=== PATIENT | male | born 1955 | race Caucasian/White ===

== ENCOUNTER → 2017-10-20 | Outpatient (CLI) | payer OTHER ==
[~2017-10-20] MED LIST: BENEMID500 MG PO; FISH OIL 1,0001 EAC7 PO; MULTI-DAY PLUS1 EAC1 PO; NIASPAN,SLO-N1000 MG PO; POLY-VITAMIN1 EACH PO; POTASSIUM-9999 MG PO; ZESTORETIC 10-1 EAC1 PO
== END | disposition home or self-care (01) ==
LOC: CDC 12:24
DX: Z01.810 Encounter for preprocedural cardiovascular examination (principal); M67.431 Ganglion, right wrist; M25.531 Pain in right wrist; R94.31 Abnormal electrocardiogram [ECG] [EKG]
CPT/HCPCS: 93000

== ENCOUNTER 2017-10-23 09:13 | Day surgery (SDC) | payer OTHER ==
[~2017-10-23] VITALS: Ht 182.9 cm; Wt 95.2 kg
[2017-10-23 09:32] VITALS: BP 137/81
[2017-10-23 12:33] VITALS: BP 121/76
[2017-10-23 13:05] VITALS: BP 126/78
== END 2017-10-23 13:17 | disposition home or self-care (01) ==
LOC: SDC
PROC: 0LB50ZZ Excision of Right Lower Arm and Wrist Tendon, Open Approach (ICD-10-PCS; principal; 2017-10-23)
DX: M67.431 Ganglion, right wrist (principal); I10 Essential (primary) hypertension; M10.9 Gout, unspecified; Z82.49 Family history of ischemic heart disease and other diseases of the circulatory system
CPT/HCPCS: 88304; J1100; J1885; J2250; J2405; J3010; S0020